=== PATIENT | male | born 1975 | race Asian ===

== ENCOUNTER 2016-11-10 13:08 | Emergency (ER) | payer SELFPAY ==
[~2016-11-10] VITALS: Ht 175.3 cm; Wt 98.4 kg
[2016-11-10 15:20] VITALS: BP 145/96
== END 2016-11-10 15:20 | disposition home or self-care (01) ==
LOC: ED 13:08
DX: S16.1XXA Strain of muscle, fascia and tendon at neck level, initial encounter (principal); M54.6 Pain in thoracic spine; V43.52XA Car driver injured in collision with other type car in traffic accident, initial encounter; Y93.89 Activity, other specified; Y99.8 Other external cause status; Y92.89 Other specified places as the place of occurrence of the external cause